=== PATIENT | male | born 1995 | race Caucasian/White ===

== ENCOUNTER 2020-12-01 17:28 | Emergency (ER) | payer SELFPAY ==
[~2020-12-01] VITALS: Ht 185.4 cm; Wt 99.8 kg
[2020-12-01 17:33] VITALS: BP 151/85
== END 2020-12-01 19:35 | disposition left against medical advice (07) ==
LOC: ER 17:28
DX: S60.453A Superficial foreign body of left middle finger, initial encounter (principal); Z53.21 Procedure and treatment not carried out due to patient leaving prior to being seen by health care provider; X58.XXXA Exposure to other specified factors, initial encounter; Y93.89 Activity, other specified; Y92.89 Other specified places as the place of occurrence of the external cause; Y99.8 Other external cause status